=== PATIENT | female | born 1940 | race Hispanic/Latino ===

== ENCOUNTER → 2022-11-17 | Outpatient (CLI) | payer OTHER ==
[~2022-11-17] MED LIST: FOLI0.8T2 PO; IOHEXOL 350 MG/ML 100ML INFUS..BTL IV ONE; LEVO25TA54 PO; LINA5TAB PO; LOSA100T59 PO; LOVA20TA3 PO; NEBI2.5T PO; RIVA20TA PO; SODI100037 PO
== END | disposition home or self-care (01) ==
LOC: RAH 10:13
PROVIDERS: ATTEND Internal Medicine Cardiovascular Disease
DX: I51.7 Cardiomegaly (principal); I47.1 Supraventricular tachycardia; M47.815 Spondylosis without myelopathy or radiculopathy, thoracolumbar region
CPT/HCPCS: 75574; Q9967

== ENCOUNTER → 2022-12-10 | Outpatient (CLI) | payer OTHER ==
[~2022-12-10] MED LIST changes: -IOHEXOL 350 MG/ML 100ML INFUS..BTL IV ONE
== END | disposition home or self-care (01) ==
LOC: SHCH 10:36
PROVIDERS: ATTEND Internal Medicine Cardiovascular Disease
DX: I08.0 Rheumatic disorders of both mitral and aortic valves (principal); I48.0 Paroxysmal atrial fibrillation; E11.9 Type 2 diabetes mellitus without complications; E78.5 Hyperlipidemia, unspecified; I10 Essential (primary) hypertension
CPT/HCPCS: 93306